=== PATIENT | female | born 1955 | race Caucasian/White ===

== ENCOUNTER 2016-11-06 22:13 | Emergency (ER) | payer OTHER ==
[~2016-11-06] VITALS: Ht 162.6 cm; Wt 71.5 kg
[2016-11-06 22:18] VITALS: Ht 162.6 cm; Wt 71.5 kg
[2016-11-06] MEDS ORDERED: HYDROCODONE/APAP (5/325) TAB PO ONE (23:00)
--- NOTE | 2016-11-06 23:04 | RADRPT ---
PROCEDURE: ULTRASOUND OF THE RIGHT LOWER EXTREMITY VENOUS SYSTEM WITH DOPPLER CLINICAL INDICATION: 61 years of age, female. Pain.. COMPARISON: None available. TECHNIQUE: Real-time longitudinal and transverse sonographic estes scale imaging with and without com pression, as well as color and duplex Doppler imaging before and after augmentation, was obtained of the deep system of the right lower extremity, including the common femoral, femoral, popliteal, pos terior tibial, and peroneal veins. FINDINGS: Right common femoral vein: No evidence of thrombus. Right femoral vein: No evidence of thrombus. Right popliteal vein: No evidence of thrombus. Right calf veins: Patent where visualized. Additional comment: IMPRESSION: Negative for ultrasound evidence of deep venous thrombosis in the right lower extremity. RPTAT: HCTS Physician Lili Date Time Electronically viewed and signed by Physician Lili on 11/06/2016 23:04 /
--- NOTE | 2016-11-06 23:18 | ERD ---
ER Documentation Chief Complaint Date/Time DATE: 11/06/16 TIME: 23:15 Chief Complaint low back pain, radaiting to left foot HPI This a 61-year-old female presents to the emergency department today planning of right-sided back pain that goes down the back of her leg. States she also has pain in the back of her knee and feels like her knee is going to give out. States that she takes meloxicam for surgery that she had in her left arm.Denies any fevers or chills, trauma.Denies any chest pain, shortness of breath. ROS All systems reviewed and are negative except as per history of present illness. Medications Home Meds Active Scripts Prednisone* (Prednisone*) 20 Mg Tab, 40 MG PO DAILY for 4 Days, TAB Prov:ROLANDO AGUIRRE PA-C 11/06/16 Tramadol HCl (Tramadol HCl) 50 Mg Tablet, 50 MG PO Q4 Y for PAIN, #20 TAB Prov:ROLANDO AGUIRRE PA-C 11/06/16 Allergies Allergies: Coded Allergies: ibuprofen (Verified Allergy, Unknown, 11/06/16) PMhx/Soc Medical and Surgical Hx: pt denies Medical Hx History of Surgery: Yes (ORTHO SX IN ARM) Anesthesia Reaction: No Hx Neurological Disorder: No Hx Respiratory Disorders: No Hx Cardiac Disorders: No Hx Psychiatric Problems: No Hx Miscellaneous Medical Probl: No Hx Alcohol Use: No Hx Substance Use: No Hx Tobacco Use: No Smoking Status: Never smoker Physical Exam Vitals Vital Signs Date Time Temp Pulse Resp B/P Pulse Ox O2 Delivery O2 Flow Rate FiO2 11/06/16 22:18 97.4 63 20 145/82 98 Physical Exam Const: NAD Head: Atraumatic Eyes: Normal Conjunctiva ENT: Normal External Ears, Nose and Mouth. Neck: Full range of motion..~ No meningismus. Resp: Clear to auscultation bilaterally Cardio: Regular rate and rhythm, no murmurs Abd: Soft, non tender, non distended. Normal bowel sounds Skin: No petechiae or rashes Back: Lumbar spine no midline tenderness. Right-sided paraspinal tenderness. Full active range of motion of right leg. Pulses 2+ per distal neurovascularly intact per Ext: No cyanosis, or edema. No gastroc tenderness. Neur: Awake and alert Psych: Normal Mood and Affect Results 24 hrs Current Medications Medications (Trade) Dose Ordered Sig/Wei Route PRN Reason Start Time Stop Time Status Last Admin Dose Admin Acetaminophen/ Hydrocodone Bitart (Keller (5/325)) 1 tab ONCE ONCE PO 11/06/16 23:00 11/06/16 23:01 DC 11/06/16 22:57 Prednisone (Prednisone) 60 mg ONCE ONCE PO 11/07/16 00:00 11/07/16 00:01 DC 11/07/16 00:00 DIAGNOSTIC IMAGING REPORT Patient: LUIS LOPEZ : 1955 Age: 61 Sex: F MR #: [id number] DOS: 11/06/16 0000 Ordering MD: ROLANDO AGUIRRE PA-C Location: [facility] Room/Bed: PROCEDURE: ULTRASOUND OF THE RIGHT LOWER EXTREMITY VENOUS SYSTEM WITH DOPPLER CLINICAL INDICATION: 61 years of age, female. Pain.. COMPARISON: None available. TECHNIQUE: Real-time longitudinal and transverse sonographic estes scale imaging with and without compression, as well as color and duplex Doppler imaging before and after augmentation, was obtained of the deep system of the right lower extremity, including the common femoral, femoral, popliteal, posterior tibial, and peroneal veins. FINDINGS: Right common femoral vein: No evidence of thrombus. Right femoral vein: No evidence of thrombus. Right popliteal vein: No evidence of thrombus. Right calf veins: Patent where visualized. Additional comment: IMPRESSION: Negative for ultrasound evidence of deep venous thrombosis in the right lower extremity. RPTAT: HCTS Physician Lili Date Time Electronically viewed and signed by Jeniffer Saxena Physician on 11/06/2016 23: 04 CS/ CC: ROLANDO AGUIRRE PA-C DIAGNOSTIC IMAGING REPORT Patient: LUIS LOPEZ : 1955 Age: 61 Sex: F MR #: [id number] DOS: 11/06/16 0000 Ordering MD: ROLANDO AGUIRRE PA-C Location: [facility] Room/Bed: PROCEDURE: XR Knee. CLINICAL INDICATION: Right knee pain. TECHNIQUE: Three views of the right knee. COMPARISON: None available FINDINGS: There is no acute fracture or dislocation. There is mild to moderate lateral and patellofemoral compartment osteophytosis. No joint effusion is identified. IMPRESSION: 1. No acute fracture or dislocation of the right knee. 2. Mild to moderate lateral and patellofemoral compartment arthrosis. RPTAT: HTAR .Lenny Hood MD, Date Time Electronically viewed and signed by .Lenny Hood MD, MD on 11/06/2016 23:44 .R/ CC: ROLANDO AGUIRRE PA-C DIAGNOSTIC IMAGING REPORT Patient: LUIS LOPEZ : 1955 Age: 61 Sex: F MR #: [id number] DOS: 11/06/16 0000 Ordering MD: ROLANDO AGUIRRE PA-C Location: [facility] Room/Bed: PROCEDURE: Lumbar Spine. CLINICAL INDICATION: Back pain with radicular symptoms. TECHNIQUE: Three views of the lumbar spine. COMPARISON: None available FINDINGS: The lumbar lordosis is preserved without spondylolisthesis. The vertebral body heights are maintained. No acute fracture or subluxation is seen. There is degenerative facet arthrosis at L5-S1, causing neural foraminal narrowing at this level IMPRESSION: 1. No acute fracture or subluxation. 2. Degenerative facet arthrosis L5-S1, causing neural foraminal narrowing at this level. RPTAT: HTAR .Lenny Hood MD, Date Time Electronically viewed and signed by .Lenny Hood MD, on 11/06/2016 23:48 .R/ CC: ROLANDO AGUIRREC Procedures/MDM This a 61-year-old female who presents the emergency department today complaining of right-sided back pain that goes down her right leg. Patient was also complaining of pain in the back of her right knee and feeling like it is going to give out. Did have some concern given the area that patient was complaining of pain for possible vascular problem and therefore did obtain images as well as a Doppler ultrasound. Venous Doppler ultrasound right lower extremity shows no evidence of deep venous thrombosis. Per the radiology report images of the right knee Shows no acute fracture dislocation. There is mild to moderate lateral patellofemoral compartment osteophytosis. There is no joint effusion identified. Images of the lumbar spine shows no acute fracture or subluxation. There is degenerative facet arthrosis L5 and S1 causing neural foraminal narrowing at this level. Patient symptoms at this time is consistent with sciatic type back pain, degnerative disc disease and arthritis of the knee. Low suspicion for acute fracture dislocation. Patient is afebrile and otherwise well-appearing. Low suspicion for septic joint or gout. She has no loss of bowel or bladder control and I have low suspicion for cauda equina or abscess Patient is allergic to ibuprofen and was therefore given Keller here in the emergency department as well as prednisone. She will begin a short course of tramadol, prednisone for home. Prior to discharge patient notified me that she does not have an allergy to ibuprofen but it irritates her stomach and causes pain.She also reported that she has an appointment with a specialist for her pain on November 13. She was instructed to keep that appointment. At this time the patient is stable for discharge and outpatient management. Patient should follow up with their PCP in the next 1-2 days. They may return to the emergency department sooner for any persistent or worsening of symptoms. Patient understood and agreed with the plan. . Departure Diagnosis: Primary Impression: Back pain Back pain location: low back pain Chronicity: chronic Back pain laterality : right Sciatica presence: with sciatica Sciatica laterality: sciatica of right side Qualified Code: M54.41 - Chronic right-sided low back pain with right-sided sciatica Additional Impression: Knee pain Chronicity: chronic Laterality: right Qualified Code: M25.561 - Chronic pain of right knee Condition: Fair ROLANDO AGUIRRE. PA-C Nov 06, 2016 23:18
--- NOTE | 2016-11-06 23:44 | RADRPT ---
PROCEDURE: XR Knee. CLINICAL INDICATION: Right knee pain. TECHNIQUE: Three views of the right knee. COMPARISON: None available FINDINGS: There is no acute fracture or dislocation. There is mild to moderate lateral and patellofemoral com partment osteophytosis. No joint effusion is identified. IMPRESSION: 1. No acute fracture or dislocation of the right knee. 2. Mild to moderate lateral and patellofemoral compartment arthrosis. RPTAT: HTAR .Lenny Hood MD, MD Date Time Electronically viewed and signed by .Lenny Hood MD, on 11/06/2016 23:44 .R/
--- NOTE | 2016-11-06 23:48 | RADRPT ---
PROCEDURE: Lumbar Spine. CLINICAL INDICATION: Back pain with radicular symptoms. TECHNIQUE: Three views of the lumbar spine. COMPARISON: None available FINDINGS: The lumbar lordosis is preserved without spondylolisthesis. The vertebral body heights are maintaine d. No acute fracture or subluxation is seen. There is degenerative facet arthrosis at L5-S1, causin g neural foraminal narrowing at this level IMPRESSION: 1. No acute fracture or subluxation. 2. Degenerative facet arthrosis L5-S1, causing neural foraminal narrowing at this level. RPTAT: HTAR .Lenny Hood MD, Date Time Electronically viewed and signed by .Lenny Hood MD, on 11/06/2016 23:48 .R/
[2016-11-06] MEDS ORDERED: PRED20TA PO (23:58)
[2016-11-06] MEDS ORDERED: TRAM50TA2 PO (23:58)
[2016-11-07] MEDS ORDERED: predniSONE 20 MG TAB PO ONE
[2016-11-07 00:15] VITALS: BP 137/71; PULSE 81; RESP 20; TEMP 98.3
== END 2016-11-07 00:17 | disposition home or self-care (01) ==
LOC: FTE 22:13
DX: M54.41 Lumbago with sciatica, right side (principal); M25.561 Pain in right knee
CPT/HCPCS: 72100; 73562; 93971; J7512; Z7502; Z7610

== ENCOUNTER 2016-12-07 11:42 | Day surgery (SDC) | payer OTHER ==
[~2016-12-07] VITALS: Ht 160 cm; Wt 70.6 kg
[~2016-12-07 11:42] MED LIST: PRED20TA PO; TRAM50TA2 PO
[2016-12-07 12:41] VITALS: Ht 160 cm; Wt 70.6 kg
[2016-12-07] MEDS ORDERED: VIT B3 (12:54)
[2016-12-07 13:04] VITALS: BP 153/84; PULSE 68; RESP 13
--- NOTE | 2016-12-07 13:56 | OPPN ---
Date/Time of Note Date/Time of Note DATE: 12/07/16 TIME: 13:55 Operative Report Preoperative Diagnosis Screening Postoperative Diagnosis Small sigmoid colon polyp Internal hemorrhoids Operation/Procedure Performed Colonoscopy and biopsy Surgeon see signature line nutrition services assistant None Anesthesia: moderate sedation Estimated blood loss: none Transfusion Required none Specimen Sigmoid polyp Grafts/Implants none Complications none JAIME MARQUIS MD Dec 07, 2016 13:56
[2016-12-07 14:19] VITALS: BP 130/72; RESP 14
[2016-12-07] MEDS ORDERED: MIDAZOLAM 1 MG/ML 2 ML INJ ONE ×2 (14:41)
[2016-12-07] MEDS ORDERED: FENTAnyl 50 MCG/ML VIAL ONE (14:41)
--- NOTE | 2016-12-08 09:24 | GILP ---
DATE OF PROCEDURE: NAME OF PROCEDURES: Colonoscopy and biopsy. SURGEON: Jaime Stevenson MD PREOPERATIVE DIAGNOSIS: Screening colonoscopy. POSTOPERATIVE DIAGNOSES 1. Colonoscopy all the way to the cecum. 2. Small sigmoid colon polyp was removed. 3. Internal hemorrhoids. INDICATION FOR THE PROCEDURE: Ms. Francheska Welsh is a 61-year-old female patient who was schedule d for screening colonoscopy. The procedure and possible complications are well explained to the patient, she understood and conse nted to the procedure. DESCRIPTION OF PROCEDURE: Under the influence of fentanyl and Versed, the colonoscope was carefully introduced in the rectum and under direct vision, it was advanced all the way to the cecum. FINDINGS: The patient had a small sigmoid colon polyp and it was removed using the biopsy forceps. She had internal hemorrhoids. She tolerated the procedure very well and there was no complication from the procedure. At the end of the procedure, she was awake with stable vital signs and she was discharged home to the care of h er family. IMPRESSION: 1. Colonoscopy all the way to the cecum. 2. Small sigmoid colon polyp was removed using the biopsy forceps. 3. Internal hemorrhoids. PLAN: Next screening colonoscopy in 10 years. Dictated By: JAIME HODGE/SANTOSH Conf#: [id number] DID#: [id number]
== END 2016-12-07 14:34 | disposition home or self-care (01) ==
LOC: GIL 11:42
PROVIDERS: ATTEND Internal Medicine Gastroenterology
DX: Z12.11 Encounter for screening for malignant neoplasm of colon (principal); K64.8 Other hemorrhoids
CPT/HCPCS: 45380; 88305; J2250; J3010; Z7610

== ENCOUNTER 2018-07-15 05:51 | Day surgery (SDC) | payer OTHER ==
[~2018-07-15] VITALS: Ht 160 cm; Wt 69.5 kg
[~2018-07-15 05:51] MED LIST changes: +VIT B3
[2018-07-15 06:54] VITALS: Ht 160 cm; Wt 69.5 kg
[2018-07-15 07:21] VITALS: BP 127/62; PULSE 58; RESP 18
[2018-07-15] MEDS ORDERED: MIDAZOLAM 1 MG/ML 2 ML INJ ONE (09:01)
[2018-07-15] MEDS ORDERED: FENTAnyl 50 MCG/ML VIAL ONE (09:01)
== END 2018-07-15 15:22 | disposition home or self-care (01) ==
LOC: GIL 05:51
PROVIDERS: ATTEND Internal Medicine Gastroenterology
DX: K21.9 Gastro-esophageal reflux disease without esophagitis (principal); K29.50 Unspecified chronic gastritis without bleeding
CPT/HCPCS: 43239; 88305; 88312; J2250; J3010; Z7610